=== PATIENT | female | born 1985 | race Caucasian/White ===

== ENCOUNTER 2017-08-20 17:39 | Emergency (ER) | payer MEDICAID, OTHER ==
--- NOTE | 2017-08-20 17:53 | EDPHY ---
H & P Stated Complaint: r foot inj/tripped 1 week ago/still hurts Time Seen by Provider: 08/20/17 17:52 HPI/ROS: HPI: This is a 32-year-old female who presents with Chief Complaint: r foot inj/tripped 1 week ago/still hurts Location: Bottom of right foot Quality: Injury Duration: 7 days ago Signs and Symptoms: No bleeding, no radiation, no numbness, no weakness, no tingling, no incontinence, no decreased range of motion, no swelling, + pain Timing: Acute, worse with weight-bearing Severity: [id number] Context: Patient was at [facility] practice when she went up for a jump and came down on her right foot and felt immediate, constant, moderate pain. She was able to continue practice but complains of pain after weight-bearing for the last several days. She is concerned she may have broken 1 of her toes. She denies any paresthesias/weakness/decreased range of motion. Modifying Factors: None Comment: ROS: see HPI Constitutional: No fever, no chills, no weight loss Eyes: No blurred vision Respiratory: No shortness of breath, no cough Cardiovascular: No chest pain Gastrointestinal: No nausea, no vomiting no diarrhea Genitourinary: No dysuria Extremities: No myalgias Neurologic: No weakness, no numbness Skin: No rashes Hematologic: No bruising, no bleeding MEDICAL/SURGICAL/SOCIAL HISTORY: Medical history: Generally healthy. Does not take any regular medications. Surgical history: Denies Social history: Employed. CONSTITUTIONAL: awake and alert, no obvious distress HEENT: Atraumatic and normocephalic. NECK: supple, no midline tenderness, flexion 45 degrees, extension 45 degrees, right and left lateral flexion 45 degrees. No meningismus. Cardiovascular: Normal S1/S2, regular rate, regular rhythm, without murmur rub or gallop. PULMONARY/CHEST: Symmetrical and nontender. no crepitus. Clear to auscultation bilaterally. Good air movement. No accessory muscle usage. ABDOMEN: Soft, nondistended, nontender, no ecchymosis. PELVIC: no pain with rocking; bilateral hips flexion 125 degrees, extension 30 degrees, with no pain internal rotation and no pain external rotation. BACK: No midline tenderness, no paraspinous spasm, deep tendon reflexes 2/2, no pain with straight leg raise EXTREMITIES: 2/2 pulses, strength 5/5, right Ankle: Plantar flexion to 50, dorsiflexion to 20. Foot inversion to 35 degree. No tenderness/swelling Anterior talofibular ligament. No tenderness/swelling Calcaneofibular ligament , no tenderness/swelling posterior talofibular ligament, no tenderness/swelling posterior inferior tibiofibular ligament. Achilles tendon intact. Tenderness to palpation at the base of her 2nd and 3rd toes on the volar aspect; no ecchymosis; no deformity appreciated. DIP/PIP/MCP flexion/extension intact with good light touch sensation. no deformities, no clubbing, no cyanosis or edema. NEUROLOGICAL: no focal neuro deficits. GCS 15. Light touch sensation intact. SKIN: Warm and dry, no erythema. no rash. Good capillary refill. Source: Patient Exam Limitations: No limitations - Personal History LMP (Females 10-55): Now Current Tetanus Diphtheria and Acellular Pertussis (TDAP): Yes - Medical/Surgical History Hx Asthma: No Hx Chronic Respiratory Disease: No Hx Diabetes: No Hx Cardiac Disease: No Hx Renal Disease: No Hx Cirrhosis: No Hx Alcoholism: No Hx HIV/AIDS: No Hx Splenectomy or Spleen Trauma: No Other PMH: denies - Social History Smoking Status: Never smoked Constitutional: Initial Vital Signs Temperature (C) 36.3 C 08/20/17 17:43 Heart Rate 74 08/20/17 17:43 Respiratory Rate 18 08/20/17 17:43 Blood Pressure 127/79 H 08/20/17 17:43 O2 Sat (%) 100 08/20/17 17:43 O2 Delivery Mode Room Air Allergies/Adverse Reactions: No Known Allergies Allergy (Unverified 08/20/17 17:43) Home Medications: Medication Instructions Recorded NK [No Known Home Meds] 08/20/17 Medical Decision Making - Diagnostics Imaging Results: Imaging Impressions Foot X-Ray 08/20/17 17:49 Impression: Nothing acute identified. ED Course/Re-evaluation: X-ray my read shows no fracture dislocation No signs of neurovascular compromise/tenting of skin/compartment syndrome/ extremities and joints examined above and below area of concern and are neurovascularly intact. Advised rice therapy, supportive care. Offered cast shoe but patient politely declines. This patient was seen under the supervision of my secondary supervising physician. I evaluated care for this patient independently. Differential Diagnosis: Differential diagnosis includes but is not limited to talus fracture, metatarsal fracture, facial strain, sprain, ligament injury, nerve injury. Departure - Departure Disposition: Home, Routine, Self-Care Clinical Impression: Plantar fascia syndrome Condition: Good Instructions: Plantar Fasciitis (ED) Additional Instructions: Stretch and massage the plantar fascia before standing up. Stretcher foot by flex and up and down 10 times before standing. Do toe stretches to stretch the plantar fascia. Fill a water bottle with water and freeze. Roll the bottom of your foot over the frozen water bottle 2 times per day for several days to decrease pain and inflammation. The x-rays obtained in the emergency department today demonstrate no evidence of an obvious fracture. Sometimes fractures are not obvious on the initial set of x-rays performed in the ED. For this reason, you should have repeat x-rays performed in 7-10 days if you are having any pain exclude the possibility of an occult fracture. Referrals: [facility],. [Clinic] - As per Instructions
[2017-08-20 18:19] VITALS: BP 114/88; PULSE 80; RESP 16; TEMP 98.4; O2SAT 97
== END 2017-08-20 18:28 | disposition home or self-care (01) ==
DX: M72.2 Plantar fascial fibromatosis (principal); W01.0XXA Fall on same level from slipping, tripping and stumbling without subsequent striking against object, initial encounter; Y93.39 Activity, other involving climbing, rappelling and jumping off

== ENCOUNTER 2018-05-09 17:11 | Emergency (ER) | payer OTHER ==
[2018-05-09 17:19] VITALS: BP 111/77
--- NOTE | 2018-05-09 17:53 | EDPHY ---
HPI/HX/ROS/PE/MDM Narrative: CHIEF COMPLAINT: Head injury HPI: The patient is a 33 y/o female arriving with her boyfriend for evaluation of a head injury following an injury at work this afternoon around 14:00, about 4 hours ago. 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 She was wearing a beanie and thinks this padded the impact. She did not lose consciousness, but did feel "dizzy and a little out of it" following the impact to the point where she opted not to drive home. She denies any other injuries from this event. She currently feels nauseated and her scalp is sore at the sit of the impact. She denies vomiting, midline neck or back pain, weakness, paresthesias, or other acute complaints. She is generally healthy. REVIEW OF SYSTEMS: A comprehensive 10 system review of systems is otherwise negative aside from elements mentioned in the history of present illness. 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 SOCIAL HISTORY: Employed as a industrial safety and health technician. Boyfriend at bedside. Lives in [place]. PHYSICAL EXAM: General:Patient is alert, in no acute distress. ENT:Eyes are normal to inspection. ENT inspection normal. Neck: Normal inspection. Full range of motion. Respiratory:No respiratory distress. Breath sounds normal bilaterally. Cardiovascular: Regular rate and rhythm. Strong peripheral pulses. Normal cap refill. Abdomen:The abdomen is nontender to palpation. There are no peritoneal signs. Back: Normal to inspection. No tenderness to palpation. Skin: Normal color. No rash. Warm and dry. Extremities: Normal appearance. Full range of motion. Neuro: Oriented x3. Normal motor function. Normal sensory function. No pronator drift. ED Course: This is a healthy 33 y/o female who presents for evaluation of a head injury after a headboard fell onto her while at work this afternoon. She is currently nauseated and has scalp soreness at the site of impact. She is neurovascularly intact and has a normal exam. Discussed risks and benefits of neuroimaging and patient opted to avoid imaging at this time. She will be discharged with standard concussion care and follow up instructions. Return precautions discussed. She is comfortable with this plan. - Data Points Medications Given: Discontinued Medications Ondansetron HCl (Zofran Odt) 4 mg PO EDNOW ONE Stop: 05/09/18 18:01 Last Admin: 05/09/18 18:02 Dose: 4 mg General Time Seen by Provider: 05/09/18 17:23 Initial Vital Signs: Initial Vital Signs Temperature (C) 36.7 C 05/09/18 17:16 Heart Rate 76 05/09/18 17:16 Respiratory Rate 16 05/09/18 17:16 Blood Pressure 111/77 05/09/18 17:16 O2 Sat (%) 100 05/09/18 17:16 O2 Delivery Mode Room Air Allergies/Adverse Reactions: No Known Allergies Allergy (Unverified 08/20/17 17:43) Home Medications: Medication Instructions Recorded NK [No Known Home Meds] 08/20/17 Departure - Departure Disposition: Home, Routine, Self-Care Clinical Impression: Head injury Qualifiers: Encounter type: initial encounter Qualified Code(s): S09.90XA - Unspecified injury of head, initial encounter Concussion Qualifiers: Encounter type: initial encounter Loss of consciousness presence/duration: without LOC Qualified Code(s): S06.0X0A - Concussion without loss of consciousness, initial encounter Condition: Good Instructions: Concussion (ED), Head Injury (ED) Additional Instructions: 1. Cognitive rest while symptoms are present. Avoid screen time including TV, phones, computers, video games over the next 1-2 weeks. Slowly advance activity as tolerated and reduce if symptoms worsen. 2. Physical rest for the next 10-14 days or longer if symptoms persist. Avoid any activities that could lead to a recurrent head injury in this time - ex. sports with physical contact, snowboarding/skiing, bicycling, etc. 3. Ibuprofen and Tylenol as directed on the packaging as needed for headache over the next few days. 4. Follow up with head injury specialist if needed for unimproved symptoms over the next 1-2 weeks. 5. Return to the ED for severe pain, weakness or numbness on one side of your body, confusion, uncontrollable vomiting, or other worsening of condition. Okay to sleep normally. Follow up with your HR department for any workman's comp needs. Referrals: Petra Pope MD [Medical Doctor] - As per Instructions Report Scribed for: Troy Duke Report Scribed by: Shira L Christina Date of Report: 05/09/18 Time of Report: 17:53 Physician Review and Approval Statement: Portions of this note were transcribed by an ED scribe. I personally performed the history, physical exam, and medical decision making; and confirm the accuracy of the information in the transcribed note.
[2018-05-09] MEDS ORDERED: ONDANSETRON DISINTEGRATING 4 MG TAB PO ONE (18:00)
== END 2018-05-09 18:14 | disposition home or self-care (01) ==
DX: S06.0X0A Concussion without loss of consciousness, initial encounter (principal); W22.8XXA Striking against or struck by other objects, initial encounter; Y99.0 Civilian activity done for income or pay